=== PATIENT | male | born 1935 | race Caucasian/White ===

== ENCOUNTER 2016-06-08 10:55 | Emergency (ER) | payer MEDICARE, BC ==
[2016-06-08] MEDS ORDERED: Sodium Chloride 0.9% 2.5 ML Syringe FLUSH PRN (11:04)
[2016-06-08] MEDS ORDERED: Sodium Chloride 0.9% 10 ML Syringe FLUSH PRN (11:04)
--- NOTE | 2016-06-08 11:17 | EDM.PDOC ---
ED HPI Trauma - General Chief Complaint: Trauma Stated Complaint: UNK Time Seen by Provider: 06/08/16 11:00 Source: Reports: Patient, EMS History Limitations: Reports: No limitations - History of Present Illness INITIAL COMMENTS - FREE TEXT/NARRATIVE: History of present illness: [] Patient was closing a gate and a horse kicked him in the right elbow and a gate swung and hit her right side of his lower abdomen. Patient had no loss of consciousness and was able to walk inside the house. Once he was inside patient had a syncopal episode while sitting in a chair that began as him stiffening and then passing out for less than a minute according to his . Shunt arrived by ambulance with no complaints of pain other than mild discomfort in his right elbow he is able to move his right upper extremity and denies any numbness or tingling. Review of systems: As per history of present illness and below otherwise all systems reviewed and negative. Past medical history: As per history of present illness and as reviewed below otherwise noncontributory. Surgical history: As per history of present illness and as reviewed below otherwise noncontributory. Social history: No reported history of drug or alcohol abuse. Family history: As per history of present illness and as reviewed below otherwise noncontributory. Physical exam: General: Well developed, well nourished in NAD HEENT: Atraumatic, normocephalic, pupils reactive, negative for conjunctival pallor or scleral icterus, mucous membranes moist, throat clear, neck supple, nontender, trachea midline. Lungs: Clear to auscultation, breath sounds equal bilaterally, chest nontender. Heart: S1S2, regular, negative for clicks, rubs, or JVD. Abdomen: Soft, nondistended, there is a large ecchymotic area on his right lateral abdomen, mild tenderness to palpation without rebound or guarding. Negative for masses or hepatosplenomegaly. Negative for costovertebral tenderness. Pelvis: Stable nontender. Genitourinary: Deferred. Rectal: Deferred. Extremities: Right elbow, negative for cords or calf pain. Neurovascular unremarkable. Neuro: Awake, alert, oriented. Cranial nerves II through XII unremarkable. Cerebellum unremarkable. Motor and sensory unremarkable throughout. Exam nonfocal. Diagnostics: [] Labs, x-rays show small liver laceration with mild hemoperitoneum patient's vital signs have been stable his H&H 16 and 40 Therapeutics: [] Impression: [] Liver laceration secondary to blunt abdominal trauma. Superficial right elbow laceration without fracture Plan: [] I discussed this case with Dr. Adkins from general surgery who prefers that this patient go to a facility for observation where there is interventional radiology and a larger supply of blood products given he is on Plavix. Patient is being transferred to [facility] to Dr. Dinh in the emergency room. Definitive disposition and diagnosis as appropriate pending reevaluation and review of above. Allergies/ADRs: Allergies No Known Allergies Allergy (Verified 06/08/16 11:06) Home Medications: Ambulatory Orders Atenolol 50 mg PO DAILY 07/22/15 [Confirmed 06/08/16] Cimetidine 300 mg PO DAILY 07/22/15 [Confirmed 06/08/16] Clopidogrel Bisulfate [Clopidogrel] 75 mg PO DAILY 07/22/15 [Confirmed 06/08/16] Losartan Potassium 100 mg PO DAILY 07/22/15 [Confirmed 06/08/16] Minocycline HCl 100 mg PO DAILY 07/22/15 [Confirmed 06/08/16] Simvastatin [Zocor] 40 mg PO BEDTIME 07/22/15 [Confirmed 06/08/16] Tamsulosin HCl 0.4 mg PO BEDTIME 07/22/15 [Confirmed 06/08/16] Naproxen Sodium [Aleve] 440 mg PO DAILY 06/08/16 [Confirmed 06/08/16] Triamterene/Hydrochlorothiazid [Triamterene-HCTZ 37.5-25 MG] 1 tab PO DAILY 09/19 [Confirmed 06/08/16] Past Medical History HEENT History: Reports: Hard of hearing, Impaired vision, Retinal detachment, Other (see below) Other HEENT History: wears glasses, has decreased vision in left eye, has hearing aides but does not always wear, upper dentures. Cardiovascular History: Reports: CAD, High cholesterol, Hypertension Respiratory History: Reports: None Gastrointestinal History: Reports: GERD, Other (see below) Other Gastrointestinal History: occasional Genitourinary History: Reports: Prostate disorder Musculoskeletal History: Reports: Arthritis Other Musculoskeletal History: knee Neurological History: Reports: None Psychiatric History: Reports: None Endocrine/Metabolic History: Reports: Obesity/BMI 30+ Hematologic History: Reports: None Immunologic History: Reports: None Oncologic (Cancer) History: Reports: None Dermatologic History: Reports: Other (see below) Other Dermatologic History: rosacea - Past Surgical History Other Cardiovascular Surgeries/Procedures: 4 vessels in 2009 Social & Family History - Tobacco Use Smoking Status *Q: Former Smoker - Recreational Drug Use Recreational Drug Use: No Review of Systems - Review of Systems Review Of Systems: See Below (See history of present illness) ED EXAM, TRAUMA (MAJOR/MULTI) - Physical Exam Exam: See Below (See history of present illness) Course - Vital Signs Last Recorded V/S: Last Vital Signs Temp 36.4 C 06/08/16 13:19 Pulse 70 06/08/16 13:19 Resp 18 06/08/16 13:19 BP 170/91 H 06/08/16 13:19 Pulse Ox 99 06/08/16 13:19 - Orders/Labs/Meds Orders: Active Orders 24 hr Category Date Time Status Insert Patterson Catheter [Insert Urinary Catheter] [OM.PC] Care 06/08/16 13:45 Ordered Q24H Urinary Catheter Assessment [RC] ASDIRECTED Care 06/08/16 13:37 Active Vaccines to be Administered [RC] PER UNIT ROUTINE Care 06/08/16 12:22 Active Sodium Chloride 0.9% [Saline Flush] Med 06/08/16 11:04 Active 10 ml FLUSH ASDIRECTED PRN Sodium Chloride 0.9% [Saline Flush] Med 06/08/16 11:04 Active 2.5 ml FLUSH ASDIRECTED PRN Peripheral IV Insertion Adult [OM.PC] Stat Oth 06/08/16 11:04 Ordered Medication Orders Sodium Chloride (Saline Flush) 10 ml FLUSH ASDIRECTED PRN PRN Reason: Keep Vein Open Sodium Chloride (Saline Flush) 2.5 ml FLUSH ASDIRECTED PRN PRN Reason: Keep Vein Open Labs: Laboratory Tests 06/08/16 06/08/16 06/08/16 Range/Units 11:04 11:07 11:07 WBC 14.01 H (4.0-11.0) K/uL RBC 5.47 (4.50-5.90) M/uL Hgb 16.4 (13.0-17.0) g/dL Hct 48.7 (38.0-50.0) % MCV 89.0 (80.0-98.0) fL MCH 30.0 (27.0-32.0) pg MCHC 33.7 (31.0-37.0) g/dL RDW Std Deviation 45.7 (28.0-62.0) fl RDW Coeff of Darrel 14 (11.0-15.0) % Plt Count 166 (150-400) K/uL MPV 10.80 (7.40-12.00) fL Neut % (Auto) 82.1 H (48.0-80.0) % Lymph % (Auto) 7.9 L (16.0-40.0) % [place] % (Auto) 8.9 (0.0-15.0) % Eos % (Auto) 0.7 (0.0-7.0) % Baso % (Auto) 0.4 (0.0-1.5) % Neut # 11.5 H (1.4-5.7) K/uL Lymph # 1.1 (0.6-2.4) K/uL [place] # 1.3 H (0.0-0.8) K/uL Eos # 0.1 (0.0-0.7) K/uL Baso # 0.1 (0.0-0.1) K/uL Nucleated RBC % 0.0 /100WBC Nucleated RBCs # 0 K/uL INR (0.86-1.11) APTT (18.6-31.3) SEC Sodium 136 (136-146) mmol/L Potassium 4.4 (3.5-5.1) mmol/L Chloride 104 (98-110) mmol/L Carbon Dioxide 23 (21-31) mmol/L BUN 20 (6.0-23.0) mg/dL Creatinine 1.4 (0.6-1.5) mg/dL Est Cr Clr Drug Dosing 40.00 mL/min Estimated GFR (MDRD) 48.9 ml/min Glucose 122 H (60-110) mg/dL Calcium 9.1 (8.8-10.8) mg/dL Total Bilirubin 0.6 (0.1-1.5) mg/dL AST 40 (5-40) IU/L ALT 48 (8-54) IU/L Alkaline Phosphatase 53 (40-150) Total Protein 6.4 (6.0-8.0) g/dL Albumin 3.9 (3.4-4.8) g/dL Globulin 2.5 (2.0-3.5) g/dL Albumin/Globulin Ratio 1.6 (1.3-2.8) Lipase 30 (7-80) U/L Urine Color YELLOW Urine Appearance CLEAR Urine pH 6.0 (5.0-8.0) Ur Specific [place] 1.010 (1.001-1.035) Urine Protein NEGATIVE (NEGATIVE) mg/dL Urine Glucose (UA) NEGATIVE (NEGATIVE) mg/dL Urine Ketones NEGATIVE (NEGATIVE) mg/dL Urine Occult Blood NEGATIVE (NEGATIVE) Urine Nitrite NEGATIVE (NEGATIVE) Urine Bilirubin NEGATIVE (NEGATIVE) Urine Urobilinogen 0.2 (<2.0) EU/dL Ur Leukocyte Esterase NEGATIVE (NEGATIVE) Urine RBC 1-2 (0-2/HPF) Urine WBC 0-1 (0-5/HPF) Ur Epithelial Cells RARE (NONE-FEW) Urine Bacteria FEW (NEGATIVE) Blood Type Antibody Screen 06/08/16 06/08/16 Range/Units 11:07 11:22 WBC (4.0-11.0) K/uL RBC (4.50-5.90) M/uL Hgb (13.0-17.0) g/dL Hct (38.0-50.0) % MCV (80.0-98.0) fL MCH (27.0-32.0) pg MCHC (31.0-37.0) g/dL RDW Std Deviation (28.0-62.0) fl RDW Coeff of Darrel (11.0-15.0) % Plt Count (150-400) K/uL MPV (7.40-12.00) fL Neut % (Auto) (48.0-80.0) % Lymph % (Auto) (16.0-40.0) % [place] % (Auto) (0.0-15.0) % Eos % (Auto) (0.0-7.0) % Baso % (Auto) (0.0-1.5) % Neut # (1.4-5.7) K/uL Lymph # (0.6-2.4) K/uL [place] # (0.0-0.8) K/uL Eos # (0.0-0.7) K/uL Baso # (0.0-0.1) K/uL Nucleated RBC % /100WBC Nucleated RBCs # K/uL INR 1.01 (0.86-1.11) APTT 24.5 (18.6-31.3) SEC Sodium (136-146) mmol/L Potassium (3.5-5.1) mmol/L Chloride (98-110) mmol/L Carbon Dioxide (21-31) mmol/L BUN (6.0-23.0) mg/dL Creatinine (0.6-1.5) mg/dL Est Cr Clr Drug Dosing mL/min Estimated GFR (MDRD) ml/min Glucose (60-110) mg/dL Calcium (8.8-10.8) mg/dL Total Bilirubin (0.1-1.5) mg/dL AST (5-40) IU/L ALT (8-54) IU/L Alkaline Phosphatase (40-150) Total Protein (6.0-8.0) g/dL Albumin (3.4-4.8) g/dL Globulin (2.0-3.5) g/dL Albumin/Globulin Ratio (1.3-2.8) Lipase (7-80) U/L Urine Color Urine Appearance Urine pH (5.0-8.0) Ur Specific [place] (1.001-1.035) Urine Protein (NEGATIVE) mg/dL Urine Glucose (UA) (NEGATIVE) mg/dL Urine Ketones (NEGATIVE) mg/dL Urine Occult Blood (NEGATIVE) Urine Nitrite (NEGATIVE) Urine Bilirubin (NEGATIVE) Urine Urobilinogen (<2.0) EU/dL Ur Leukocyte Esterase (NEGATIVE) Urine RBC (0-2/HPF) Urine WBC (0-5/HPF) Ur Epithelial Cells (NONE-FEW) Urine Bacteria (NEGATIVE) Blood Type O POSITIVE Antibody Screen NEGATIVE Meds: Medications Generic Name Dose Route Start Last Admin Trade Name Freq PRN Reason Stop Dose Admin Sodium Chloride 10 ml 06/08/16 11:04 Saline Flush FLUSH ASDIRECTED PRN Keep Vein Open Sodium Chloride 2.5 ml 06/08/16 11:04 Saline Flush FLUSH ASDIRECTED PRN Keep Vein Open Discontinued Medications Generic Name Dose Route Start Last Admin Trade Name Freq PRN Reason Stop Dose Admin Diphtheria/Tetanus/Acell Pertussis 0.5 ml 06/08/16 12:22 06/08/16 13:28 Adacel IM 06/08/16 12:23 0.5 ml .ONCE ONE Administration Iopamidol 75 ml 06/08/16 13:32 Isovue-300 (61%) IVPUSH 06/08/16 13:33 ONETIME STA Departure - Departure Time of Disposition: 13:41 Disposition: DC/Tfer to Acute Hospital 02 Condition: good Clinical Impression: Liver laceration Qualifiers: Encounter type: initial encounter Qualified Code(s): S36.113A - Laceration of liver, unspecified degree, initial encounter Referrals: PCP,None [Primary Care Provider] - Forms: ED Department Discharge - My Orders Last 24 Hours: My Active Orders 06/08/16 11:04 Sodium Chloride 0.9% [Saline Flush] 10 ml FLUSH ASDIRECTED PRN Sodium Chloride 0.9% [Saline Flush] 2.5 ml FLUSH ASDIRECTED PRN Peripheral IV Insertion Adult [OM.PC] Stat 06/08/16 12:22 Vaccines to be Administered [RC] PER UNIT ROUTINE 06/08/16 13:37 Urinary Catheter Assessment [RC] ASDIRECTED 06/08/16 13:45 Insert Patterson Catheter [Insert Urinary Catheter] [OM.PC] Q24H - Assessment/Plan Last 24 Hours: My Active Orders 06/08/16 11:04 Sodium Chloride 0.9% [Saline Flush] 10 ml FLUSH ASDIRECTED PRN Sodium Chloride 0.9% [Saline Flush] 2.5 ml FLUSH ASDIRECTED PRN Peripheral IV Insertion Adult [OM.PC] Stat 06/08/16 12:22 Vaccines to be Administered [RC] PER UNIT ROUTINE 06/08/16 13:37 Urinary Catheter Assessment [RC] ASDIRECTED 06/08/16 13:45 Insert Patterson Catheter [Insert Urinary Catheter] [OM.PC] Q24H
[2016-06-08] MEDS ORDERED: Diphtheria,Pertussis(Acell),Tetanus Vaccine 0.5 ML Syringe IM ONE (12:22)
--- NOTE | 2016-06-08 12:57 | CT ---
CT of the abdomen and pelvis with contrast. HISTORY: Pain TECHNIQUE: Axial CT images were obtained of the abdomen and pelvis following administration of 75 mL of Isovue-300 in the left antecubital fossa without complication. Coronal and sagittal reconstructi ons obtained. FINDINGS: The lung bases are clear, no pleural effusion. There is mild dependent atelectasis. There is a small pocket of. Splenic and perihepatic fluid. There is likely a tiny linear laceration noted within the right hepatic lobe adjacent a cyst. Otherwise the liver and spleen appear intact. S mall hepatic cysts are noted. Hemorrhage also tracks along the right flank and right pericolic gutte r. The pancreas and adrenal glands appear normal. The gallbladder is unremarkable. Both the left and right kidneys enhance and function symmetrically without evidence of obstructive u ropathy. Moderate renal cortical cysts are noted bilaterally. The visualized large and small bowel are normal in caliber without evidence of obstruction. Diverticulosis without evidence of diverticul itis. No free air. There is a tiny fat-containing periumbilical hernia. Urinary bladder appears norm al. There is a small fat-containing left inguinal hernia. No pelvic lymphadenopathy. No suspicious osseous abnormalities. IMPRESSION: 1. Mild to moderate hemoperitoneum with possible tiny laceration in the right hepatic lobe adjacent to a small cyst. 2. Otherwise the solid organs appear grossly intact. 3. Diverticulosis without evidence of diverticulitis. 4. Multiple renal cysts noted. 5. Small fat-containing periumbilical hernia small fat-containing left inguinal hernia.
--- NOTE | 2016-06-08 13:01 | CR ---
EXAMINATION: Right elbow HISTORY: Trauma COMPARISON: None TECHNIQUE: 3 views FINDINGS/IMPRESSION: There is no acute osseous abnormality, dislocation, or fracture identified. Bon e mineralization and joint spaces appear grossly intact. No definite joint effusion.
[2016-06-08 13:19] VITALS: BP 170/91
[2016-06-08] MEDS ORDERED: Iopamidol 612 MG/ML 50 ML SDV IVPUSH STA (13:32)
[2016-06-08] MEDS ORDERED: fentaNYL 100 MCG/2 ML SDV IVPUSH ONE (14:16)
== END 2016-06-08 14:47 ==
LOC: MW.ED 10:55
DX: S36.113A Laceration of liver, unspecified degree, initial encounter (principal); W55.12XA Struck by horse, initial encounter; I10 Essential (primary) hypertension; I25.10 Atherosclerotic heart disease of native coronary artery without angina pectoris; E78.00 Pure hypercholesterolemia, unspecified; M19.90 Unspecified osteoarthritis, unspecified site; E66.9 Obesity, unspecified; Z87.891 Personal history of nicotine dependence; Z79.02 Long term (current) use of antithrombotics/antiplatelets; Z79.899 Other long term (current) drug therapy; Z68.31 Body mass index [BMI] 31.0-31.9, adult; Z23 Encounter for immunization
CPT/HCPCS: 73080; 74177; 80053; 81001; 83690; 85025; 85610; 85730; 86850; 86900; 86901; 90471; 90715; 99285; G0390; Q9967